=== PATIENT | female | born 1970 | race Caucasian/White ===

== ENCOUNTER 2020-10-26 08:27 | Outpatient (REF) | payer OTHER, SELFPAY ==
--- NOTE | 2020-10-26 10:17 | MHC.AU.P13 ---
Adult Audiological Evaluation Date of Visit: 10/26/20 Reason for Appointment: Audiological evaluation due to concern for decreased hearing. Ms. Magana reports that she has difficulties understanding speech in a whisper. Does patient feel they have a hearing loss?: Yes If Yes, Which Ear?: Both Ears When Was Hearing Difficulty First Noticed?: 7 years ago Hearing Handicap Inventory: HHIE SCORE: 14 Based on HHIE score, patient has: Mild to moderate perceived hearing handicap Ear History: Recent Ear Pain: Both Ears Medical History: Medical History: Headache, Head Injury Medical History (Other): Head injury 11/15/2019, whip-lash, asthma Otoscopy: Right Ear: Unremarkable Left Ear: Unremarkable Tympanometry: Tympanometry performed due to: To assess integrity of the middle ear system Right Ear: Normal Middle Ear System (Type A) Left Ear: Normal Middle Ear System (Type A) Hearing Evaluation: Transducer(s) Used: Insert Earphones, Bone Conduction Method: Conventional Audiometry Stimuli Used: Pure Tones Right Ear: Description of Hearing: Normal hearing from 250-1000 Hz, sloping to a mild sensorineural hearing loss at 2000 Hz, and rising to normal hearing from 6008-7223 Hz. Left Ear: Description of Hearing: Normal hearing from 250-1000 Hz, sloping to a mild sensorineural hearing loss from 6122-9533 Hz, and rising to normal hearing from 0078-0296 Hz. Speech Recognition Threshold (SRT): Method Used: Monitored Live Voice Stimuli Used: Spondee Words Right Ear: 25 dBHL Left Ear: 25 dBHL Word Discrimination: Method: Recorded Lists Word Lists Used: NU-6 Right Ear: 96% at 65 dBHL Left Ear: 96% at 65 dBHL Recommendations: Audiological re-evaluation in one year. Amplification is not warranted at this time. Diagnosis: Primary Diagnosis: H90.3 Bilateral Sensorineural Hearing Loss Services Performed: Services Performed: Comprehensive Audiological Evaluation (CPT 18415) Tympanometry (CPT 23850) Signature: Provider: Mike Drummond, CCC-A
== END 2020-10-26 08:28 | disposition home or self-care (01) ==
LOC: HO.SH 08:27
PROVIDERS: Visit Provider Nurse Practitioner Family
DX: H90.3 Sensorineural hearing loss, bilateral (principal)
CPT/HCPCS: 92557; 92567